=== PATIENT | male | born 2000 | race Caucasian/White ===

== ENCOUNTER 2023-11-02 17:17 | Emergency (ER) | payer OTHER ==
[~2023-11-02] VITALS: Ht 180.3 cm; Wt 105.7 kg
[2023-11-02 17:24] VITALS: BP 132/76; PULSE 95; RESP 24; TEMP 97.7; O2SAT 97
[2023-11-02] MEDS ORDERED: cefTRIAXone 500 MG VIAL ONE (18:31)
[2023-11-02] MEDS ORDERED: LIDOCAINE MPF 1% 5 ML ONE (18:31)
[2023-11-02] MEDS: cefTRIAXone 500 MG in LIDOCAINE MPF 1% 1 ML IM ONE (18:36)
[2023-11-02] MEDS: FLUORESCEIN OPTH STRIP 1 MG OP ONE (18:36)
[2023-11-02] MEDS: TETRACAINE HCL/PF 0.5% OPTH 4 ML BTL OP ONE (18:37)
[2023-11-02] MEDS: PENICILLIN G BENZATHINE L-A 1.2 MU/2 ML SYR IM ONE (18:38)
[2023-11-02] MEDS ORDERED: DOXY-22 PO (19:08)
== END 2023-11-02 19:14 | disposition home or self-care (01) ==
LOC: MED 17:17
DX: L98.9 Disorder of the skin and subcutaneous tissue, unspecified (principal); Z11.3 Encounter for screening for infections with a predominantly sexual mode of transmission; R03.0 Elevated blood-pressure reading, without diagnosis of hypertension; J45.909 Unspecified asthma, uncomplicated; Z79.899 Other long term (current) drug therapy
CPT/HCPCS: 86592; 96372; 99284; J0561; J0696; J2001